=== PATIENT | male | born 1985 | race Caucasian/White ===

== ENCOUNTER 2018-08-03 09:14 | Inpatient (IN) | payer OTHER ==
[~2018-08-03] VITALS: Ht 157.5 cm; Wt 110.2 kg
[2018-08-03] MEDS ORDERED: ALBUL GT (09:22)
[2018-08-03] MEDS ORDERED: LISI10TA5 PO (09:22)
[2018-08-03] MEDS ORDERED: BUPR75TA8 MT (09:22)
[2018-08-03] MEDS ORDERED: FLUO10TA3 GT (09:22)
[2018-08-03] MEDS ORDERED: MORPHINE SULFATE 4 MG/ML CPJ (NOT FOR IM USE) IV STA ×2 (09:31→16:10)
[2018-08-03] MEDS ORDERED: ONDANSETRON HCL 4MG/2ML INJ IV STA ×2 (09:31→16:10)
[2018-08-03 10:13] LABS: CHLORIDE 104 mEq/L (98-107)
[2018-08-03 10:14] LABS: BASOPHILS % 0.7 % (0.0-2.0); EOSINOPHILS % 0.4 % (0.0-5.0); HEMATOCRIT. 48.6 % (42.0-52.0); HEMOGLOBIN. 16.6 g/dL (14.0-18.0); LYMPHOCYTES % 15.3 % (20.0-50.0); MEAN CORPUSCULAR HEMOGLOBIN 33.4 pg (28.0-32.0); MEAN CORPUSCULAR VOLUME 97.8 fL (80.0-94.0); MEAN PLATELET VOLUME 11.8 fl (7.4-10.4); MONOCYTES % 6.8 % (2.0-8.0); NEUTROPHILS % 76.8 % (40.0-76.0); PLATELET 206 x1000/uL (130-400); RED BLOOD CELL COUNT 4.97 mill/uL (4.7-6.1); RED CELL DISTRIBUTION WIDTH 14.5 % (11.6-14.6)
[2018-08-03 11:15] LABS: PROTHROMBIN TIME 10.2 sec (9.6-11.0)
[2018-08-03] MEDS ORDERED: MORPHINE SULFATE 4 MG/ML CPJ (NOT FOR IM USE) IV ONE ×2 (11:30→13:45)
[2018-08-03] MEDS ORDERED: ONDANSETRON HCL 4MG/2ML INJ IV ONE (11:45)
[2018-08-03] MEDS ORDERED: SODIUM CHLORIDE 0.9% 1,000 ML IV ONE ×2 (12:38→22:39)
[2018-08-03] MEDS ORDERED: METOCLOPRAMIDE HCL 10MG/2ML VIAL IV ONE (12:45)
[2018-08-03] MEDS ORDERED: HYDRALAZINE 20MG/ML VIAL IV ONE (15:45)
[2018-08-03] MEDS ORDERED: SODIUM CHLORIDE 0.45% 1,000 ML IV SCH (17:01)
[2018-08-03] MEDS ORDERED: HYDRALAZINE 20MG/ML VIAL IV PRN (17:15)
[2018-08-03] MEDS ORDERED: GUAIFENESIN 200MG/10ML SUGAR FREE UDC PO PRN (17:15)
[2018-08-03] MEDS ORDERED: CLONIDINE 0.1MG TABLET PO PRN (17:15)
[2018-08-03] MEDS ORDERED: ACETAMINOPHEN 325MG TABLET PO PRN (17:15)
[2018-08-03] MEDS ORDERED: IPRATROPIUM/ALBUTEROL 0.5-3(2.5)MG/3ML NEB INH PRN (17:15)
[2018-08-03] MEDS ORDERED: DOCUSATE SODIUM 100MG CAPSULE PO PRN (17:15)
[2018-08-03] MEDS ORDERED: DIPHENHYDRAMINE 50MG/ML VIAL IV PRN (17:15)
[2018-08-03] MEDS: HYDROMORPHONE HCL/PF 2MG/ML CPJ IV PRN ×2 (17:46→21:55)
[2018-08-03] MEDS: LORAZEPAM 2MG/ML CPJ IV PRN (21:45)
[2018-08-03] MEDS ORDERED: ADENOSINE 3 MG/ML 2ML VIAL IV ONE (22:15)
[2018-08-03] MEDS ORDERED: LORAZEPAM 2MG/ML CPJ IV ONE (22:15)
[2018-08-03] MEDS ORDERED: DILTIAZEM HCL 5MG/ML 5ML VIAL IV ONE ×2 (22:30→22:45)
[2018-08-03] MEDS ORDERED: DILTIAZEM HCL 125 MG in DEXT 5% WATER 100 ML IV NR (22:58)
[2018-08-03] MEDS ORDERED: DILTIAZEM HCL 125 MG in DEXT 5% WATER 100 ML IV ONE (23:00)
[2018-08-03 23:04] LABS: CREATINE KINASE 62 IU/L (39-308)
[2018-08-03 23:05] LABS: CREATINE KINASE MB FRACTION < 1.0 ng/mL (0.5-3.6)
[2018-08-03 23:21] LABS: CLARITY URINE CLEAR (CLEAR); COLOR URINE ORANGE (YELLOW); KETONES URINE 2+ (NEGATIVE); LEUKOCYTE ESTERASE URINE TRACE (NEGATIVE); NITRITE URINE NEGATIVE (NEGATIVE); OCCULT BLOOD URINE NEGATIVE (NEGATIVE); PH URINE >=9.0 (4.5-8.0); PROTEIN URINE 2+ (NEGATIVE); SPECIFIC GRAVITY URINE 1.028 (1.005-1.030)
[2018-08-04] VITALS (91 sets, daily range): BP systolic 107–148; BP diastolic 65–104
[2018-08-04] MEDS ORDERED: LORAZEPAM 2MG/ML CPJ IV ONE
[2018-08-04] MEDS: DILTIAZEM HCL 125 MG in DEXT 5% WATER 100 ML IV PRN ×4 (01:25→23:09)
[2018-08-04] MEDS: METRONIDAZOLE 500 MG PREMIX 100 ML IV SCH ×3 (02:00→17:02)
[2018-08-04] MEDS ORDERED: LEVOFLOXACIN 500MG PREMIX 100 ML IV SCH (03:00)
[2018-08-04] MEDS: HYDROCODONE/ACETAMINOPHEN 10/325MG TABLET PO PRN ×3 (03:21→12:49)
[2018-08-04] MEDS: SODIUM CHLORIDE 0.9% INJ 3ML FLUSH IVF SCH ×3 (05:24→22:02)
[2018-08-04 05:51] LABS: HEMATOCRIT. 52.3 % (42.0-52.0); HEMOGLOBIN. 17.4 g/dL (14.0-18.0); MEAN CORPUSCULAR HEMOGLOBIN 33.3 pg (28.0-32.0); MEAN CORPUSCULAR VOLUME 100.3 fL (80.0-94.0); PLATELET 126 x1000/uL (130-400); RED BLOOD CELL COUNT 5.22 mill/uL (4.7-6.1); RED CELL DISTRIBUTION WIDTH 15.2 % (11.6-14.6)
[2018-08-04 05:52] LABS: CHLORIDE 108 mEq/L (98-107)
[2018-08-04 06:00] LABS: CREATINE KINASE 58 IU/L (39-308)
[2018-08-04 06:03] LABS: CREATINE KINASE MB FRACTION < 1.0 ng/mL (0.5-3.6)
[2018-08-04 06:07] LABS: T4 FREE 1.02 ng/dL (0.76-1.46)
[2018-08-04] MEDS: HYDROMORPHONE HCL/PF 2MG/ML CPJ IV PRN ×5 (07:33→22:04)
[2018-08-04 08:22] LABS: PLATELET ESTIMATE NORMAL
[2018-08-04] MEDS: DEXT 5%/0.45% NACL 1000ML 1,000 ML IV SCH ×2 (08:32→17:02)
[2018-08-04] MEDS: LORAZEPAM 2MG/ML CPJ IV PRN (23:02)
[2018-08-05] VITALS (64 sets, daily range): BP systolic 107–155; BP diastolic 64–116
[2018-08-05] MEDS: HYDROMORPHONE HCL/PF 2MG/ML CPJ IV PRN ×5 (00:49→20:47)
[2018-08-05] MEDS: METRONIDAZOLE 500 MG PREMIX 100 ML IV SCH ×3 (01:33→17:07)
[2018-08-05] MEDS: DEXT 5%/0.45% NACL 1000ML 1,000 ML IV SCH ×4 (01:35→18:55)
[2018-08-05] MEDS: LEVOFLOXACIN 500MG PREMIX 100 ML IV SCH (03:34)
[2018-08-05] MEDS: NA PHOS,M-B/NA PHOS,DI-BA ENEMA 118ML PR PRN (04:47)
[2018-08-05 05:17] LABS: BASOPHILS % 0.2 % (0.0-2.0); HEMOGLOBIN. 16.1 g/dL (14.0-18.0); LYMPHOCYTES % 7.1 % (20.0-50.0); MEAN CORPUSCULAR HEMOGLOBIN 33.6 pg (28.0-32.0); MEAN CORPUSCULAR VOLUME 100.1 fL (80.0-94.0); MONOCYTES % 6.1 % (2.0-8.0); NEUTROPHILS % 86.6 % (40.0-76.0)
[2018-08-05 05:31] LABS: CHLORIDE 100 mEq/L (98-107)
[2018-08-05] MEDS: SODIUM CHLORIDE 0.9% INJ 3ML FLUSH IVF SCH ×3 (05:44→22:30)
[2018-08-05] MEDS: LORAZEPAM 2MG/ML CPJ IV PRN ×2 (05:54→22:45)
[2018-08-05] MEDS ORDERED: MAGNESIUM 2 G PREMIX 50 ML IV SCH (08:30)
[2018-08-05] MEDS: HYDROCODONE/ACETAMINOPHEN 10/325MG TABLET PO PRN ×3 (09:41→20:11)
[2018-08-05 11:58] LABS: PLATELET 81 x1000/uL (130-400)
[2018-08-05] MEDS: MAGNESIUM/ALUMINUM HYDROXIDE/SIMETHICONE 30ML UDC PO PRN (18:30)
[2018-08-05] MEDS: ONDANSETRON HCL 4MG/2ML INJ IV PRN (20:46)
[2018-08-06] VITALS (41 sets, daily range): BP systolic 122–174; BP diastolic 73–112
[2018-08-06] MEDS: DEXT 5%/0.45% NACL 1000ML 1,000 ML IV SCH ×4 (00:03→20:28)
[2018-08-06] MEDS: MAGNESIUM/ALUMINUM HYDROXIDE/SIMETHICONE 30ML UDC PO PRN ×3 (00:55→20:21)
[2018-08-06] MEDS: HYDROMORPHONE HCL/PF 2MG/ML CPJ IV PRN ×5 (01:13→20:20)
[2018-08-06] MEDS: METRONIDAZOLE 500 MG PREMIX 100 ML IV SCH ×3 (01:19→18:05)
[2018-08-06] MEDS: LEVOFLOXACIN 500MG PREMIX 100 ML IV SCH (02:17)
[2018-08-06 05:02] LABS: HEMATOCRIT. 38.6 % (42.0-52.0); HEMOGLOBIN. 13.2 g/dL (14.0-18.0); MEAN CORPUSCULAR HEMOGLOBIN 33.7 pg (28.0-32.0); MEAN CORPUSCULAR VOLUME 98.8 fL (80.0-94.0); RED BLOOD CELL COUNT 3.91 mill/uL (4.7-6.1)
[2018-08-06 05:04] LABS: CHLORIDE 98 mEq/L (98-107)
[2018-08-06] MEDS: ONDANSETRON HCL 4MG/2ML INJ IV PRN (05:20)
[2018-08-06] MEDS: SODIUM CHLORIDE 0.9% INJ 3ML FLUSH IVF SCH ×3 (05:34→20:29)
[2018-08-06] MEDS: LORAZEPAM 2MG/ML CPJ IV PRN ×2 (05:45→18:40)
[2018-08-06 07:28] LABS: MEAN PLATELET VOLUME 12.6 fl (7.4-10.4); PLATELET 71 x1000/uL (130-400); PLATELET ESTIMATE DECREASED
[2018-08-06] MEDS ORDERED: THROAT LOZENGES-BENZOCAINE/MENTH/CETYLPYRD CL LOZENGES MM PRN (08:45)
[2018-08-06] MEDS ORDERED: ONDANSETRON HCL 4MG/2ML INJ IV PRN (08:45)
[2018-08-06] MEDS: FAMOTIDINE 20MG/2ML VIAL IV SCH (08:47)
[2018-08-06 10:02] LABS: PHOSPHORUS 1.4 mg/dL (2.5-4.9)
[2018-08-06] MEDS ORDERED: PIPERACILLIN/TAZ 3.375G PREMIX 50 ML IV SCH (11:00)
[2018-08-06] MEDS: PIPERACILLIN/TAZ 3.375G PREMIX 50 ML IV SCH ×3 (12:47→23:33)
[2018-08-06] MEDS: METOCLOPRAMIDE HCL 10MG/2ML VIAL IV SCH ×3 (12:47→23:33)
[2018-08-06] MEDS ORDERED: POTASSIUM PHOS,M-BASIC-D-BASIC 20 MMOL in DEXT 5% WATER 243.3333 ML IV NR (14:00)
[2018-08-06] MEDS ORDERED: ONDANSETRON HCL 4MG/2ML INJ IV SCH (15:00)
[2018-08-06] MEDS: ONDANSETRON INJ 8 MG in DEXTROSE 5% WATER 50 ML IV SCH ×2 (15:37→20:21)
[2018-08-07] VITALS (20 sets, daily range): BP systolic 142–170; BP diastolic 82–109
[2018-08-07] MEDS: HYDROMORPHONE HCL/PF 2MG/ML CPJ IV PRN ×3 (01:30→12:59)
[2018-08-07] MEDS: METRONIDAZOLE 500 MG PREMIX 100 ML IV SCH ×2 (01:30→09:22)
[2018-08-07] MEDS: ONDANSETRON INJ 8 MG in DEXTROSE 5% WATER 50 ML IV SCH ×3 (03:20→15:19)
[2018-08-07] MEDS: PIPERACILLIN/TAZ 3.375G PREMIX 50 ML IV SCH ×2 (05:04→11:39)
[2018-08-07] MEDS: SODIUM CHLORIDE 0.9% INJ 3ML FLUSH IVF SCH ×2 (05:05→13:00)
[2018-08-07] MEDS: DEXT 5%/0.45% NACL 1000ML 1,000 ML IV SCH ×3 (05:05→15:19)
[2018-08-07] MEDS: METOCLOPRAMIDE HCL 10MG/2ML VIAL IV SCH ×2 (05:05→11:34)
[2018-08-07] MEDS: NA PHOS,M-B/NA PHOS,DI-BA ENEMA 118ML PR PRN (05:32)
[2018-08-07 05:42] LABS: BASOPHILS % 0.5 % (0.0-2.0); EOSINOPHILS % 1.3 % (0.0-5.0); HEMATOCRIT. 36.1 % (42.0-52.0); HEMOGLOBIN. 12.2 g/dL (14.0-18.0); LYMPHOCYTES % 9.3 % (20.0-50.0); MEAN PLATELET VOLUME 11.5 fl (7.4-10.4); MONOCYTES % 11.3 % (2.0-8.0); NEUTROPHILS % 77.6 % (40.0-76.0); PLATELET 74 x1000/uL (130-400); RED BLOOD CELL COUNT 3.69 mill/uL (4.7-6.1); RED CELL DISTRIBUTION WIDTH 15.1 % (11.6-14.6)
[2018-08-07 06:01] LABS: CHLORIDE 99 mEq/L (98-107)
[2018-08-07 06:14] LABS: PHOSPHORUS 2.1 mg/dL (2.5-4.9)
[2018-08-07] MEDS: LORAZEPAM 2MG/ML CPJ IV PRN (06:28)
[2018-08-07 06:51] LABS: HEPATITIS B SURFACE ANTIGEN NEGATIVE
[2018-08-07 07:20] LABS: HEPATITIS A AB IGM NEGATIVE (NEGATIVE)
[2018-08-07] MEDS: FAMOTIDINE 20MG/2ML VIAL IV SCH (09:22)
[2018-08-07] MEDS ORDERED: POTASSIUM CHLORIDE INJ 40 MEQ in DEXT 5% WATER 500 ML IV ONE (10:00)
[2018-08-07] MEDS ORDERED: OMEPRAZOLE 20MG CAPSULE EXTENDED RELEASE PO NR (10:45)
[2018-08-07] MEDS ORDERED: HYDRALAZINE 20MG/ML VIAL IV PRN (11:15)
[2018-08-07] MEDS ORDERED: AMLODIPINE 2.5MG TABLET PO SCH (11:15)
[2018-08-07] MEDS ORDERED: HYDROCODONE/ACETAMINOPHEN 10/325MG TABLET PO PRN (12:15)
[2018-08-07] MEDS ORDERED: POTASSIUM PHOS,M-BASIC-D-BASIC 20 MMOL in DEXT 5% WATER 243.3333 ML IV ONE (14:00)
[2018-08-07] MEDS ORDERED: METOPROLOL TARTRATE 25MG TABLET PO SCH (21:00)
[2018-08-08] MEDS ORDERED: OMEPRAZOLE 20MG CAPSULE EXTENDED RELEASE PO SCH (07:50)
== END 2018-08-07 17:09 | disposition short-term general hospital (02) | DRG 871 ==
LOC: ER 09:14 → CVICU 15:39 → EDBEDREQ 15:42 → ENRESERV 20:29 → EDBEDREQTM 22:59 → EDBEDREQSVC 22:59 → EDBEDREQ 22:59 → ENRESERV 23:42
PROVIDERS: ADMIT Internal Medicine; ATTEND Internal Medicine
DX: A41.9 Sepsis, unspecified organism (principal); J18.9 Pneumonia, unspecified organism; K85.20 Alcohol induced acute pancreatitis without necrosis or infection; I47.1 Supraventricular tachycardia; E87.1 Hypo-osmolality and hyponatremia; I10 Essential (primary) hypertension; J45.909 Unspecified asthma, uncomplicated; F41.9 Anxiety disorder, unspecified; F32.9 Major depressive disorder, single episode, unspecified; K76.0 Fatty (change of) liver, not elsewhere classified; F10.10 Alcohol abuse, uncomplicated; F17.210 Nicotine dependence, cigarettes, uncomplicated; E87.6 Hypokalemia; Z87.01 Personal history of pneumonia (recurrent); Z90.81 Acquired absence of spleen; Z79.899 Other long term (current) drug therapy; Z82.49 Family history of ischemic heart disease and other diseases of the circulatory system; Z83.3 Family history of diabetes mellitus
CPT/HCPCS: 36415; 71045; 74018; 74176; 76700; 80048; 80076; 82150; 82550; 82553; 83735; 84100; 84439; 84443; 84484; 86705; 86709; 86803; 87340; 93005; 93306; 96374; 99285; J0153; J0360; J1170; J1200; J1956; J2060; J2270; J2405; J2543; J2765; J3475; J3480; J3490; J7030; J7050; J7060; J7620